=== PATIENT | female | born 2000 | race Hispanic/Latino ===

== ENCOUNTER 2023-04-05 20:29 | Emergency (ER) | payer BC | END 2023-04-05 23:47 | disposition home or self-care (01) | LOC: CSHERS 20:29 | DX: O20.0 Threatened abortion (principal); Z3A.00 Weeks of gestation of pregnancy not specified | CPT/HCPCS: 76801; 76856; 86900; 86901 ==

== ENCOUNTER 2023-04-07 15:59 | Emergency (ER) | payer BC | END 2023-04-07 20:05 | disposition home or self-care (01) | LOC: CSHERS 15:59 | DX: O20.0 Threatened abortion (principal); Z3A.01 Less than 8 weeks gestation of pregnancy | CPT/HCPCS: 36415; 76856; 84702 ==